=== PATIENT | female | born 1980 | race African-American/Black ===

== ENCOUNTER 2017-06-22 20:59 | Emergency (ER) | payer MEDICAID, OTHER ==
[~2017-06-22] VITALS: Ht 188 cm; Wt 197.0 kg
[2017-06-22 23:59] LABS: BASOPHILS % 0.4 % (0.0-2.0); EOSINOPHILS % 0.7 % (0.0-5.0); HEMATOCRIT. 28.7 % (36.0-48.0); HEMOGLOBIN. 8.3 g/dL (12.0-16.0); LYMPHOCYTES % 23.8 % (20.0-50.0); MEAN CORPUSCULAR HEMOGLOBIN 17.1 pg (28.0-32.0); MEAN CORPUSCULAR VOLUME 59.3 fL (81.0-99.0); MEAN PLATELET VOLUME 8.5 fl (7.4-10.4); MONOCYTES % 6.3 % (2.0-8.0); NEUTROPHILS % 68.8 % (40.0-76.0); PLATELET 450 x1000/uL (130-400); RED BLOOD CELL COUNT 4.84 mill/uL (4.2-5.4); RED CELL DISTRIBUTION WIDTH 20.5 % (11.6-14.6)
[2017-06-23 00:01] LABS: CHLORIDE 102 mEq/L (98-107)
[2017-06-23 00:10] LABS: CARBON DIOXIDE 26 mEq/L (21-32)
[2017-06-23] MEDS: SODIUM CHLORIDE 0.9% 1,000 ML IV ONE (00:44)
[2017-06-23] MEDS: METOCLOPRAMIDE HCL 10MG/2ML VIAL IV ONE (00:59)
[2017-06-23] MEDS: DIPHENHYDRAMINE 50MG/ML VIAL IV ONE (00:59)
[2017-06-23 01:32] LABS: PLATELET ESTIMATE SLIGHTLY INCREASED
[2017-06-23] MEDS: KETOROLAC 30MG/ML VIAL IV ONE (03:00)
[2017-06-23 08:58] VITALS: BP 131/91
== END 2017-06-23 09:37 | disposition left against medical advice (07) ==
LOC: ER 21:18 → CANRESERV 06-23 11:12 → ENRESERV 06-23 11:12 → CANBEDREQ 06-24 01:11
DX: E23.6 Other disorders of pituitary gland (principal); R51 Headache
CPT/HCPCS: 36415; 70450; 71010; 80053; 82962; 85025; 93005; 96361; 96374; 96375; 99285; J1200; J1885; J2765; Z7610; J7030

== ENCOUNTER 2021-07-09 18:50 | Emergency (ER) | payer MEDICAID ==
[~2021-07-09] VITALS: Ht 188 cm; Wt 175.0 kg
[2021-07-09] MEDS ORDERED: HYDROCODONE/ACETAMINOPHEN 10/325MG TABLET PO ONE (23:15)
[2021-07-10 01:34] VITALS: BP 138/78
== END 2021-07-10 01:42 | disposition home or self-care (01) ==
LOC: ER 18:50
DX: M25.552 Pain in left hip (principal); M25.562 Pain in left knee; M25.572 Pain in left ankle and joints of left foot; Z91.81 History of falling
CPT/HCPCS: 73502; 73552; 73560; 73600; 99284; Z7610